=== PATIENT | female | born 1970 | race Caucasian/White ===

== ENCOUNTER 2021-02-21 08:26 | Emergency (ER) | payer OTHER ==
[~2021-02-21] VITALS: Ht 149.9 cm; Wt 58.1 kg
--- NOTE | 2021-02-21 08:30 | NUR ---
ER at bedside examining patient.
[2021-02-21 08:31] VITALS: BP_SYST 109
--- NOTE | 2021-02-21 08:32 | NUR ---
pt sascha and placed in the waiting room
--- NOTE | 2021-02-21 08:40 | NUR ---
PT ARRIVES FROM HOME W/ C/O VAGINAL BLEEDING SINCE LAST NIGHT. PT STATES PASSING CLOTS AND HAS NOT HAD THIS TYPE OF BLEEDING BEFORE.
[2021-02-21 09:03] LABS: BASOPHILS % (AUTO) 0.3 % (0.0-2.0); EOSINOPHILS % (AUTO) 0.1 % (0.0-4.0); HEMATOCRIT 36.8 % (36-48); LYMPHOCYTES # (AUTO) 0.7 K/uL (1.0-5.5); LYMPHOCYTES % (AUTO) 15.6 % (20.5-51.5); MEAN CORPUSCULAR HEMOGLOBIN 31 pg (27-31); MEAN CORPUSCULAR HGB CONC 36 % (32-36); MEAN CORPUSCULAR VOLUME 89 fL (79.0-98.0); MONOCYTES # (AUTO) 0.4 K/uL (0.0-1.0); MONOCYTES % (AUTO) 9.1 % (1.7-9.3); NEUTROPHILS # (AUTO) 3.4 K/uL (1.8-7.7); NEUTROPHILS % (AUTO) 74.9 % (40.0-70.0); PLATELET COUNT (AUTO) 188 K/uL (130-430); RED BLOOD CELL COUNT(AUTO) 4.16 MIL/uL (4.2-6.2); RED CELL DISTRIBUTION WIDTH 12.4 % (9.0-15.0); WHITE BLOOD COUNT (AUTO) 4.5 K/uL (4.8-10.8)
[2021-02-21 09:11] LABS: CALCIUM 8.6 mg/dL (8.4-11.0); CREATININE 0.72 mg/dL (0.55-1.30); POTASSIUM 4.2 mmol/L (3.5-5.1)
[2021-02-21 09:14] LABS: INR 0.9 (0.8-1.2); PROTHROMBIN TIME 9.9 SECS (9.5-12.5)
--- NOTE | 2021-02-21 09:15 | NUR ---
LABS CURRENTLY BEING DRAWN
[2021-02-21 09:22] LABS: ALBUMIN 3.5 g/dL (3.4-4.8); TOTAL BILIRUBIN 0.4 mg/dL (0.0-1.0)
[2021-02-21 09:47] LABS: BILIRUBIN,URINE NEGATIVE (NEGATIVE); BLOOD, URINE 3+ (NEGATIVE); CLARITY/URINE CLEAR (CLEAR); COLOR,URINE YELLOW (YELLOW); GLUCOSE,URINE NEGATIVE (NEGATIVE); KETONES,URINE 3+ (NEGATIVE); LEUKOCYTE ESTERASE ,URINE NEGATIVE (NEGATIVE); NITRITE, URINE NEGATIVE (NEGATIVE); PROTEIN URINE 1+ (NEGATIVE); UROBILINOGEN,URINE 0.2 (0.2-1.0)
[2021-02-21 10:25] LABS: RBC,URINE 20-50 /HPF (0-3); WBC,URINE 0-3 /HPF (0-3)
[2021-02-21 10:26] LABS: BACTERIA,URINE RARE /HPF (None Seen)
[2021-02-21] MEDS ORDERED: IBUP-1969 PO (10:32)
[2021-02-21 10:36] VITALS: BP_SYST 109
--- NOTE | 2021-02-21 10:37 | NUR ---
Patient given written and verbal discharge instructions and verbalizes understanding. ER MD discussed with patient the results and treatment provided. Patient in stable condition. ID arm band removed. Patient educated on pain management and to follow up with PMD. Pain Scale 3/10. Opportunity for questions provided and answered. Medication side effect fact sheet provided.
== END 2021-02-21 10:37 | disposition home or self-care (01) ==
LOC: SED 08:26
DX: N93.8 Other specified abnormal uterine and vaginal bleeding (principal)
CPT/HCPCS: 36415; 80053; 81000; 81025; 84702; 85025; 85610-TC; 85730-TC; 86900; 86901; 99283